=== PATIENT | female | born 1935 | race Caucasian/White ===

== ENCOUNTER 2020-07-09 05:43 | Inpatient (IN) | payer MEDICARE ==
[~2020-07-09] VITALS: Ht 165.1 cm; Wt 89.2 kg
[~2020-07-09 05:43] MED LIST: AZEL137S NS; Aldactone50 MG PO; Aspirin EC81 MG; B Complex1 EAC2 PO; CLON.2 PO; DIPASPER PO; FERR325 PO; Fergon240 M1; LEVSOD125 PO; LOSHYD100 PO; MAGOXI400 PO; METF500C PO; METO100ER PO; MULVITMIND PO; NAPR220 PO; POTCHL10ER PO; THYR60 PO; VALS80 PO; VERA240ER PO; VERA240ERB PO
[2020-07-09 06:21] LABS: BASOPHILS ABSOLUTE AUTO 0.03 K/mm3 (0.00-0.23); BASOPHILS PERCENT AUTO 0 % (0-2); EOSINOPHILS ABSOLUTE AUTO 0.06 K/mm3 (0.00-0.68); EOSINOPHILS PERCENT AUTO 1 % (0-6); Hematocrit 30.3 % (33.0-51.0); Hemoglobin 9.6 g/dL (11.5-16.0); IMMATURE GRAN ABSOLUTE AUTO 0.04 K/mm3 (0.00-0.10); IMMATURE GRAN PERCENT AUTO 0 % (0-1); LYMPHOCYTES ABSOLUTE AUTO 1.05 K/mm3 (0.84-5.20); LYMPHOCYTES PERCENT AUTO 9 % (21-46); MONOCYTES ABSOLUTE AUTO 0.57 K/mm3 (0.16-1.47); MONOCYTES PERCENT AUTO 5 % (4-13); Mean Corpuscular HGB 28.2 pg (26.0-34.0); Mean Corpuscular HGB Conc 31.7 g/dL (31.5-36.5); Mean Corpuscular Volume 89 fL (80-100); Mean Platelet Volume 13.6 fL (9.1-12.4); NEUTROPHILS ABSOLUTE AUTO 9.68 K/mm3 (1.96-9.15); NEUTROPHILS PERCENT AUTO 85 % (41-73); Platelet Count 208 K/mm3 (150-400); RDW Standard Deviation 49.2 fL (35.1-46.3); Red Blood Cell Count 3.41 M/mm3 (3.80-5.20); White Blood Cell Count 11.43 K/mm3 (4.00-11.30)
[2020-07-09 06:42] LABS: Albumin/Globulin Ratio 0.6 (0.8-1.8); Bilirubin, Total 0.3 mg/dL (0.1-1.0); Bun/Creatinine Ratio 25.1 (12.0-20.0); Calcium, Blood 8.6 mg/dL (8.5-10.1); Creatinine, Blood 2.63 mg/dL (0.40-1.00); Globulin, Blood 4.8 g/dL (2.2-4.0); Potassium, Blood 4.4 mmol/L (3.5-5.5); Total Protein, Blood 7.8 g/dL (6.4-8.2); Troponin I 0.041 ng/mL (0.000-0.040)
[2020-07-09 06:46] LABS: Influenza A, PCR NEGATIVE (NEGATIVE); Influenza B, PCR NEGATIVE (NEGATIVE); Resp Syncytial Virus, PCR NEGATIVE (NEGATIVE); SARS-Cov-2 (COVID-19) PCR, MMC NEGATIVE (NEGATIVE)
[2020-07-09] MEDS ORDERED: HYDCHL25 PO (06:48)
[2020-07-09] MEDS ORDERED: FUROSEMIDE20 MG PO (06:48)
[2020-07-09] MEDS ORDERED: LOSARTAN POTAS100 M1 PO (06:49)
[2020-07-09] MEDS ORDERED: AMLODIPINE BESYL5 MG PO (06:49)
[2020-07-09] MEDS ORDERED: HYDR10 PO (06:49)
[2020-07-09] MEDS ORDERED: ACTOS30 MG PO (06:50)
[2020-07-09] MEDS ORDERED: GLIP10ER PO (06:50)
[2020-07-09 07:25] LABS: PCO2 Arterial 33.6 mmHg (35-45); PO2 Arterial 109 mmHg (80-100); pH Blood Arterial 7.34 (7.35-7.45)
--- NOTE | 2020-07-09 09:00 | NUR ---
PT ARRIVAL ON UNIT... PT ARRIVED ON UNIT INTUBATED AND SEDATED. VENT SETTINGS ARE AC: 16/450/10/55% WITH O2 SATS>90%. L/S COARSE T/O, PT IS NOTED TO HAVE SMALL AMOUNT OF PINK FROTHY SECRETIONS FROM THE ET TUBE. PT IS IN SR W/FIRST DEGREE, PT HAS 2+ PITTING ROLANDO TO HER BLE, NON PITTING EDEMA NOTED TO HER BUE. BT PRESENT AND HYPOACTIVE, ABD IS SOFT AND NONTENDER TO PALP. PT ARRIVED ON UNIT WITH TEMP WILKINS IN PLACE, TEMP PER THE MONITOR WAS 94.8. WARM BLANKETS WERE PLACED ON THE PT TO HELP IMPROVE TEMP. WILKINS IS PATNET AND DRAINING MINIMAL AMOUNTS OF CLEAR YELLOW URINE TO GRAVITY. PT WAKES TO LOUD VERBAL STIMULI, PT IS ABLE TO ANSWER QUESTIONS APPROPRIATLY BY NODDING/SHAKING HER HEAD AND SQUEEZING MY HANDS. PT IS ON 10MCG/KG OF PROPOFOL. PT'S SON AT THE BEDSIDE TO HELP WITH HEALTH HISTORY/QUESTIONS. WILL CONTINUE TO MONITOR.
[2020-07-09 09:05] LABS: Source, Urine Catheter
[2020-07-09 09:09] LABS: Bilirubin, Urine Neg (Neg); Blood, Urine Neg (Neg); Glucose Qualitative, Urine Neg (Neg); Ketones, Urine Neg (Neg); Leukocyte Esterase, Urine Neg (Neg); Nitrite, Urine Neg (Neg); Protein, Urine 3+ (Neg); Specific Gravity, Urine 1.025 (1.003-1.022); Urobilinogen, Urine NORM (Normal)
[2020-07-09 09:15] LABS: Appearance, Urine Hazy (Clear); Color, Urine Yellow (P-Yellow)
[2020-07-09 09:16] LABS: Bacteria Few /hpf; Hyaline Casts Rare /lpf (0-2); Red Blood Cells, Urine 0-2 /hpf (0-2); Squamous Epithelial Cells Rare /hpf (Few); White Blood Cells, Urine 0-2 /hpf (0-5)
--- NOTE | 2020-07-09 14:41 | NUR ---
PT UPDATE... AT APROX 1130 PT BECAME ANXIOUS AND AGITATED DURING A BLOOD DRAW, THE PT'S PROPOFOL WAS INCREASED FROM 10MCG/KG TO 15MCG/KG TO 20MCG/KG. PT'S BP STARTED TO DROP WITH MAPS IN THE MID 50'S. DR. GALICIA NOTIFIED. AN ORDER FOR SHAMEKA WAS OBTAINED AND THE PROPOFOL WAS DECREASED BACK DOWN TO 10MCG/KG. PT IS FULLY AWAKE, BUT IS COOPERATIVE WITH CARE AT THIS TIME BUT BECOMES VERY ANXIOUS WITH BLOOD DRAWS. PT'S SON WAS CALLED FOR A VERBAL PHONE CONSENT FOR A PICC LINE, HE AGREED. WILL CONTINUE TO MONITOR.
[2020-07-09] MEDS ORDERED: LEVSOD100 PO (15:56)
[2020-07-09] MEDS ORDERED: POTA10T PO (15:57)
--- NOTE | 2020-07-09 17:53 | NUR ---
SHIFT SUMMARY... PT CONTINUES TO BE ON THE VENT, NEW SETTINGS ARE AC: 16/450/8/40% WITH O2 SATS>90%. PT'S RR EVEN AND UNLABORED 16-20. THERE IS NOTED TO BE TRISTAN COLORED THICK SECRETIONS IN THE ET TUBE SUCTION. TUBE FEEDS STARTED VIA OG TUBE, RATE IS 10MLS/HR WITH 30MLS FLUSHES OF WATER Q4HRS. PT CONTINUES TO BE ON PROPOFOL RUNNING AT 10MCG/KG, PT WAKES EASILY TO VERBAL STIMULI, PT IS CALM AND COOPERATIVE WITH CARE MOST OF THE TIME BUT IF SHE STARTS TO COUGH SHE BECOMES VERY ANXIOUS AND ATTEMPTS TO PULL THE ET TUBE OUT. PT'S PROPOFOL HAS BEEN KEPT AT A LOW DOSE THIS SHIFT D/T THE PT'S HYPOTENSION WITH INCREASED PROPOFOL. 50-75 MCG IV FENTANYL HAS BEEN GIVEN Q2 HRS TO HELP WITH SEDATION. AT APROX 1630 THIS RN WAS IN THE ROOM WITH THE PT'S SON AT THE BEDSIDE, PT'S HR STARTED TO TREND DOWN FROM THE 60'S TO THE LOW 40'S. PT'S BP WAS STABLE DURING THIS TIME, PT DENIED ANY CHEST PAIN INCREASED SOB OR ANY OTHER SYMPTOM. THIS LASTED APROX 3-5 MINS BEFORE HER HEART RATE SLOWLY TRENDED BACK UP TO THE HIGH 50'S LOW 60'S. DR. GALICIA WAS MADE AWARE OF THIS EPISODE, ZOLL PADS WERE PLACED ON THE PT WITH ZOLL AT THE BEDSIDE. PICC LINE IS BEING PLACED AT THIS TIME BY TIMOTHY NOLASCO RN. PT'S WILKINS IS PATENT AND DRAINING CLEAR YELLOW URINE TO GRAVITY. PT HAS NOT HAD A BM THIS SHIFT. WILL CONTINUE TO MONITOR UNTIL REPORT IS GIVEN TO ONCOMING RN.
--- NOTE | 2020-07-09 19:24 | NUR ---
PT UPDATE.... WHILE THE PT'S SON JOSEFA WAS AT THE BEDSIDE DURING VISITING HOURS HE HAD BROUGHT IN THE PT'S ADVANCED DIRECTIVE FROM HOME. THE ADVANCED DIRECTIVE STATED SEVERAL TIMES THAT THE PT DID NOT WANT "LIFE SUPPORT" OR TUBE FEEDINGS. THIS WAS BROUGHT UP IN THE ROOM WITH THE PT WHILE SHE WAS AWAKE AND ALERT. THE PT'S SON STATED "MOM TOLD ME SHE WASN'T READY TO YET AND DOES WANT LIFE SUPPORT AND TUBE FEEDING AND ANYTHING ELSE SHE NEEDS TO STAY ALIVE RIGHT NOW EXCEPT BLOOD PRODUCTS." WHILE THE PT'S SON IS SAYING THIS THE PT IS NODDING HER HEAD "YES" TO WHAT HER SON IS SAYING. THIS RN ASKED THE PT "DO YOU WANT TUBE FEEDING AND LIFE SUPPORT RIGHT NOW EVEN THOUGH YOUR ADVANCED DIRECTIVE SAYS NOT TO?" THE PT NODDED HER HEAD YES AND MADE THE "OKAY" SIGN WITH HER RIGHT HAND. IT WAS MADE CLEAR TO THIS RN BY THE PT AND HER SON THAT SHE WANTED TO CONTINUE TO BE A FULL CODE WITH ALL INTERVENTIONS. WILL CONTINUE TO MONITOR.
[2020-07-10 03:39] LABS: BASOPHILS ABSOLUTE AUTO 0.01 K/mm3 (0.00-0.23); BASOPHILS PERCENT AUTO 0 % (0-2); EOSINOPHILS PERCENT AUTO 0 % (0-6); Hematocrit 24.7 % (33.0-51.0); Hemoglobin 8.2 g/dL (11.5-16.0); IMMATURE GRAN ABSOLUTE AUTO 0.07 K/mm3 (0.00-0.10); IMMATURE GRAN PERCENT AUTO 0 % (0-1); LYMPHOCYTES PERCENT AUTO 3 % (21-46); MONOCYTES ABSOLUTE AUTO 0.47 K/mm3 (0.16-1.47); MONOCYTES PERCENT AUTO 3 % (4-13); Mean Corpuscular HGB 28.2 pg (26.0-34.0); Mean Corpuscular HGB Conc 33.2 g/dL (31.5-36.5); Mean Corpuscular Volume 85 fL (80-100); Mean Platelet Volume 13.5 fL (9.1-12.4); NEUTROPHILS ABSOLUTE AUTO 15.02 K/mm3 (1.96-9.15); NEUTROPHILS PERCENT AUTO 94 % (41-73); Platelet Count 159 K/mm3 (150-400); RDW Coefficient Variation 14.7 % (11.7-14.2); RDW Standard Deviation 45.8 fL (35.1-46.3); Red Blood Cell Count 2.91 M/mm3 (3.80-5.20); White Blood Cell Count 15.97 K/mm3 (4.00-11.30)
[2020-07-10 04:11] LABS: Bun/Creatinine Ratio 26.3 (12.0-20.0); Calcium, Blood 8.4 mg/dL (8.5-10.1); Creatinine, Blood 2.66 mg/dL (0.40-1.00); Magnesium, Blood 2.5 mg/dL (1.6-2.4); Phosphorus, Blood 3.9 mg/dL (2.5-4.9); Potassium, Blood 3.9 mmol/L (3.5-5.5)
[2020-07-10 04:16] LABS: Troponin I 4.6 ng/mL (0.000-0.040)
--- NOTE | 2020-07-10 05:56 | NUR ---
SHIFT SUMMARY PATIENT HAS SLEPT WELL THRU NIGHT. TWICE WOKE UP THRU SEDATIONG COUGHING, SUNG'D DOWN TO LOW 28 BPM, CAME RIGHT BACK UP, INCREASED SEDATION TO TOLERATE VENTILATOR BETTER. FOR BRIEF PERIOD HAD TO START PHENYLEPHRINE DRIP, NOW ON STAND-BY, SEE FLOWSHEET. ASSESSMENT IS CHARTED. VSS. WILL CONTINUE TO MONITOR.
--- NOTE | 2020-07-10 08:07 | NUR ---
ASSUMED CARE RECEIVED REPORT FROM TRACIE SPENCER. PT SEDATED, AROUSING TO NOXIOUS STIMULI, ON PROPOFOL AT 25 MCG/KG/MIN. VENT SETTINGS ARE AC 16/450/8/40%. VSS, THOUGH HR IS IN 50s, MAP > 65. TF - PIVOT 1.5 - INFUSING VIA OG TUBE AT 10ML/HR, WITH 30 ML WATER FLUSHES Q4H. SWB RESTRAINTS SECURED TO PT AND BED. WILKINS CATH IN PLACE. ZOLL AT BEDSIDE. BED LOW AND LOCKED.
--- NOTE | 2020-07-10 09:04 | NUR ---
UPDATE PT AWOKE TO NOXIOUS STIMULI, BUT WAS RESPONDING TO VERBAL COMMANDS, FOLLOWING DIRECTIONS, SQUEEZING FINGERS, SHAKING HEAD YES/NO TO SIMPLE QUESTIONS. SHE APPEARS TO BE ORIENTED TO SELF AND PLACE. SHE IS CALM AND COOPERATIVE, KEEPING EYES SHUT, BUT PUPILS ARE REACTIVE AND EQUAL WHEN OPEN. VSS. PROPOFOL REMAINS AT 25 MCG/KG/MIN.
--- NOTE | 2020-07-10 10:33 | NUR ---
UPDATE PROPOFOL DECREASED TO 10 MCG/KG/MIN, PT AWAKE, FOLLOWING COMMANDS, AND IS CALM/COOPERATIVE. STARTED A SBT - SPONTANEOUS PS 10/8, 30% FIO2. HR 70s, PT CONTINUES TO TOLERATE VENT ON LOWER SEDATION. WILL CONTINUE TO MONITOR. PT's SON, KIP, HAS BEEN UPDATED ON PLAN OF CARE, AND OVERNIGHT EVENTS. PT TO CALL BACK LATER FOR RESULTS OF SBT.
--- NOTE | 2020-07-10 11:15 | NUR ---
UPDATE/SBT PROPOFOL WAS TURNED DOWN FOR PT TO UNDERGO SBT, SPONT, PS 8/5, 30% FIO2. PT STARTED OFF WITH LOW TIDAL VOLUMES, A LOW RR, AND LOW MINUTE VENT, BUT AFTER A FEW MINUTES THE PT STARTING DOING VERY WELL, MAINTAINING A GOOD RR, TIDAL VOLUMES AND MINUTE VENT. SPO2 WAS MAINTAINED 95-100%. AFTER ABOUT 20 MINUTES, THE PT's RR HAD INCREASED TO 26-32, AND SHE WAS SLIGHTLY RED IN THE FACE, AND SHE WAS MOVING TO GET MY ATTENTION. SHE WAS ANXIOUS, AND LOOKED VERY UNCOMFORTABLE. SHE NODDED 'YES' TO "ARE YOU UNCOMFORTABLE?", AND "ARE YOU HAVING DIFFICULTY BREATHING?" RT WAS CALLED AND THE PT WAS SWITCHED BACK TO ASSIST CONTROL. PROPOFOL TURNED BACK UP AND PRN FENTANYL WAS GIVEN. PT CURRENTLY APPEARS CALM, COMFORTABLE, LIGHTLY SEDATED OF RASS -1. WILL CONTINUE TO MONITOR.
--- NOTE | 2020-07-10 11:39 | NUR ---
UPDATE DR. GALICIA HAS INSTRUCTED TO PUT THE PT BACK ON SPONTANEOUS, PRESSURE SUPPORT FOR ANOTHER SBT, BUT TO LEAVE THE PROPOFOL ON THE CURRENT DOSE. WILL CONTINUE TO MONITOR.
--- NOTE | 2020-07-10 13:46 | NUR ---
UPDATE PT REMAINS ON SPONTANEOUS MODE ON THE VENT, PROPOFOL UP TO 35 MCG/KG/MIN TO KEEP PT COMFORTABLE AND TO TOLERATE THE VENT, FENTANYL GIVEN PRN - PT CAN COMMUNICATE WHEN SHE IS IN PAIN. PS 8/5, FIO2 30% - PT TOLERATING IT VERY WELL - RR 20-20, VT 300-350s, SPO2 92%+. HR 80s, MAP > 65; WILL CONTINUE TO MONITOR.
[2020-07-10 15:21] LABS: Free Thyroxine 1.56 ng/dL (0.70-1.60); Thyroid Stimulating Hormone 0.294 uIU/mL (0.360-4.800)
--- NOTE | 2020-07-10 17:50 | NUR ---
UPDATE PT SWITCHED BACK TO AC 16/450/8/30% FOR THE NIGHT PER DR. GALICIA. PT RECEIVED FENTANYL FOR CPOT OF 3, BUT IS CURRENTLY BACK TO A CPOT OF 0, & RASS -1. VSS. TF WAS SWITCHED AT 1645 TO VHP TO 25 ML/HR. PT HAS HAD NO RESIDUALS VIA OG TUBE TODAY. PT IS OLIGURIC WITH 300 ML OF URINE TOTAL FOR THE SHIFT. NO CHANGES IN MENTATION, NO MAJOR OR ACUTE EVENTS NOTED. PT IS REQUIRING MORE PROPFOL THAN THIS MORNING, UP TO 45 MCG/KG/MIN AND IS RECEIVING PRN FENTANYL T/O THE DAY D/T DISCOMFORT WITH THE ETT. BED LOW AND LOCKED. FAMILY UPDATED.
[2020-07-11 04:42] LABS: BASOPHILS ABSOLUTE AUTO 0.02 K/mm3 (0.00-0.23); BASOPHILS PERCENT AUTO 0 % (0-2); EOSINOPHILS ABSOLUTE AUTO 0.02 K/mm3 (0.00-0.68); EOSINOPHILS PERCENT AUTO 0 % (0-6); Hematocrit 25.1 % (33.0-51.0); Hemoglobin 8.1 g/dL (11.5-16.0); IMMATURE GRAN PERCENT AUTO 1 % (0-1); LYMPHOCYTES ABSOLUTE AUTO 0.67 K/mm3 (0.84-5.20); LYMPHOCYTES PERCENT AUTO 4 % (21-46); MONOCYTES ABSOLUTE AUTO 1.31 K/mm3 (0.16-1.47); MONOCYTES PERCENT AUTO 8 % (4-13); Mean Corpuscular HGB 27.8 pg (26.0-34.0); Mean Corpuscular HGB Conc 32.3 g/dL (31.5-36.5); Mean Corpuscular Volume 86 fL (80-100); NEUTROPHILS ABSOLUTE AUTO 14.57 K/mm3 (1.96-9.15); NEUTROPHILS PERCENT AUTO 87 % (41-73); Platelet Count 168 K/mm3 (150-400); Red Blood Cell Count 2.91 M/mm3 (3.80-5.20); White Blood Cell Count 16.69 K/mm3 (4.00-11.30)
[2020-07-11 04:44] LABS: Mean Platelet Volume 13.1 fL (9.1-12.4)
[2020-07-11 05:00] LABS: Bun/Creatinine Ratio 27.8 (12.0-20.0); Calcium, Blood 8.1 mg/dL (8.5-10.1); Creatinine, Blood 2.59 mg/dL (0.40-1.00); Magnesium, Blood 2.6 mg/dL (1.6-2.4); Phosphorus, Blood 3.7 mg/dL (2.5-4.9); Potassium, Blood 3.8 mmol/L (3.5-5.5)
--- NOTE | 2020-07-11 06:51 | NUR ---
SHIFT SUMMARY PATIENT SLEPT WELL THRU NIGHT. NO ACUTE CHANGES OVERNIGHT. ASSESSMENT IS CHARTED. VSS. WILL CONTINUE TO MONITOR.
--- NOTE | 2020-07-11 07:39 | NUR ---
ASSUMED CARE RECEIVED REPORT FROM TRACIE SPENCER. PT IN BED SEDATED ON PROPOFOL 35 MCG/KG/MIN, [facility], SETTINGS: AC 16/450/8/30%. PT RIDING VENT WITH RR OF 16, SPO2 95%. CURRENT CPOT OF 0. TF IS VITAL HIGH PROTEIN AT 30 ML/HR VIA OG TUBE WITH Q4H 30 mL WATER FLUSHES. WILKINS PATENT, DRAINING LIGHT YELLOW-CLEAR URINE. SWB RESTRAINTS SECURED TO PT AND BED. VSS. BED LOW AND LOCKED.
--- NOTE | 2020-07-11 09:08 | NUR ---
UPDATE PT SWITCHED TO PRESSURE SUPPORT (SPONTANEOUS) 09/27, 30%. WILL EVALUATE EFFECTIVENESS OVER SEVERAL HOURS, AND CONSIDER T-PEICE; PER DR. GALICIA. PT COMFORTABLE, RASS -1, ON PROPOFOL 35 MCG/KG/MIN.
--- NOTE | 2020-07-11 09:23 | NUR ---
UPDATE/AFIB PT IS IN AFIB,
--- NOTE | 2020-07-11 09:36 | NUR ---
UPDATE PT's MORNING EKG STRIP SHOWED NORMAL SINUS RHYTHM AT 0706, RATE IN THE 80s. HOWEVER, SHE IS NOW IN AFIB, RATE 95-123. IT IS CURRENTLY UNCLEAR EXACTLY WHEN SHE CONVERTED TO AFIB, BUT AROUND 0800 HER RATE STARTED TO TREND UPWARD FROM 80s TO THE HIGH 90s. BLOOD PRESSURE HAS BEEN STABLE, MAP > 65. DR. GALICIA IS AWARE. SPONTANEOUS PS TRIAL IS GOING WELL, RR IS 20-24, TIDAL VOLUMES UP TO 300-350, MINUTE VENT > 6L/MIN. SPO2 LOW 90s%. CPOT CAME UP TO 4, SO PT WAS MEDICATED WITH 25 MCG OF FENT, WILL REASSESS CPOT, AND WILL CONTINUE TO MONITOR PT'S STATUS.
--- NOTE | 2020-07-11 16:22 | NUR ---
UPDATE FAMILY IS REQUESTING PT TO BE TRANSFERRED TO [facility] SO SHE CAN BE EVALUATED FOR CARDIAC SURGERY. TRANSFER PROCESS HAS BEEN INITIATED, AND A ROOM HAS BEEN GIVEN. CURRENTLY WAITING TO HEAR BACK FROM [facility] REGARDING GROUND TRANSPORT OF A PT ON THE VENTILATOR. IF THEY ARE UNABLE TO, REACH WILL BE CALLED INSTEAD. PT CURRENTLY RASS OF -2, REMAINS IN AFIB, RATE 105-120, MAP > 65. WILL CONTINUE TO MONITOR.
--- NOTE | 2020-07-11 17:47 | NUR ---
UPDATE/TRANSFER PT OUT OF ICU AT 1740 WITH [facility], AND IS TRANSPORTING TO [facility]. PT IN AFIB - RATE 100-125, MAP > 65. SHE WAS UNCOMFORTABLE PRIOR TO TRANSFER TO [facility], AND HAD A CPOT OF 4, MOVING AROUND IN BED, PULLING ON RESTRAINTS, AND RR INCREASED TO UPPER 20s. THIS RN GAVE 50 MCG OF FENTANYL. GAVE REPORT TO TRACIE MEEHAN FROM [facility]. CALLED TRACIE SHAW FROM [facility] AND GAVE REPORT AT 1745. KIP, THE PT's SON, IS AWARE OF TRANSPORT.
== END 2020-07-11 17:40 | disposition short-term general hospital (02) | DRG 280 ==
LOC: ER 05:43 → ERHOLD 06:42 → ICUW 06:42
PROVIDERS: Emergency Medicine; Internal Medicine; Internal Medicine Critical Care Medicine; ADMIT Family Medicine
PROC: 5A09357 Assistance with Respiratory Ventilation, Less than 24 Consecutive Hours, Continuous Positive Airway Pressure (ICD-10-PCS; principal; 2020-07-09)
PROC: 0BH17EZ Insertion of Endotracheal Airway into Trachea, Via Natural or Artificial Opening (ICD-10-PCS; 2020-07-09)
PROC: 5A1945Z Respiratory Ventilation, 24-96 Consecutive Hours (ICD-10-PCS; 2020-07-09)
PROC: 02HV33Z Insertion of Infusion Device into Superior Vena Cava, Percutaneous Approach (ICD-10-PCS; 2020-07-09)
DX: I13.0 Hypertensive heart and chronic kidney disease with heart failure and stage 1 through stage 4 chronic kidney disease, or unspecified chronic kidney disease (principal); I21.4 Non-ST elevation (NSTEMI) myocardial infarction; J96.01 Acute respiratory failure with hypoxia; J18.9 Pneumonia, unspecified organism; I50.33 Acute on chronic diastolic (congestive) heart failure; N18.4 Chronic kidney disease, stage 4 (severe); N17.9 Acute kidney failure, unspecified; J44.1 Chronic obstructive pulmonary disease with (acute) exacerbation; J44.0 Chronic obstructive pulmonary disease with (acute) lower respiratory infection; R57.9 Shock, unspecified; Z20.822 Contact with and (suspected) exposure to COVID-19; I05.0 Rheumatic mitral stenosis; Z88.8 Allergy status to other drugs, medicaments and biological substances; I48.91 Unspecified atrial fibrillation; E03.9 Hypothyroidism, unspecified; Z85.038 Personal history of other malignant neoplasm of large intestine; Z90.49 Acquired absence of other specified parts of digestive tract; Z79.899 Other long term (current) drug therapy; D63.1 Anemia in chronic kidney disease; M06.9 Rheumatoid arthritis, unspecified; Z86.73 Personal history of transient ischemic attack (TIA), and cerebral infarction without residual deficits; Z87.442 Personal history of urinary calculi; D50.9 Iron deficiency anemia, unspecified
CPT/HCPCS: 0241U; 31500; 36415; 36569; 36600; 51702; 71045; 80048; 80053; 81001; 82803; 82947; 83605; 83735; 83880; 84100; 84145; 84439; 84443; 84484; 85025; 87040; 93005; 93010; 93308; 93321; 94002; 94003; 96374-59; 99285-25; A9270; A9270-GY; C1751; C9113; J0330; J0456; J0696; J1644; J1815; J1940; J2370; J2704; J2930; J3010; J7040; J7050